=== PATIENT | male | born 1995 | race Caucasian/White ===

== ENCOUNTER 2021-02-25 11:08 | Emergency (ER) | payer OTHER ==
[~2021-02-25] VITALS: Ht 170.2 cm; Wt 83.2 kg
[~2021-02-25 11:08] MED LIST: HYDR-3165 PO
[2021-02-25 11:23] VITALS: BP 154/80
[2021-02-25] MEDS ORDERED: LIDOCAINE 2% 20 ML VIAL. ONE (11:41)
[2021-02-25] MEDS ORDERED: LIDOCAINE 2% 20 ML VIAL. IJ ONE (11:45)
[2021-02-25] MEDS ORDERED: BACITRACIN ZINC TOPICAL OINT PACKET. TP ONE ×3 (12:21→12:45)
[2021-02-25] MEDS ORDERED: CEPHALEXIN 250 MG CAPSULE ONE (12:34)
[2021-02-25] MEDS ORDERED: CEPH500T PO (12:35)
--- NOTE | 2021-02-25 12:35 | PHYS DOC ---
Past History Past Medical History: Anxiety, Depression Past Surgical History: Other Alcohol Use: Occasionally Drug Use: None Adult General Chief Complaint Chief Complaint: LACERATION/AVULSION HPI HPI Patient is a 25-year-old male presenting for laceration. He is healthy, active duty and was at work when he was trying to open a box with a pocket knife, he subsequently accidentally cut his right pinky. Bleeding controlled prior to arrival with direct pressure. He has no medical issues, no medications on a daily basis, no blood thinners, tetanus is up-to-date. Denies any changes in motor, sensory or neurologic function Review of Systems Review of Systems Fourteen body systems of review of systems have been reviewed. See HPI for pertinent positives and negative responses, other reyes all other systems are negative, non-pertinent or non-contributory Current Medications Current Medications Current Medications Medications (Trade) Dose Ordered Sig/Andreea Start Time Stop Time Status Last Admin Dose Admin Bacitracin (Bacitracin Topical Pkt) 1 pkt STK-MED ONCE 02/25/21 12:21 02/25/21 12:22 DC Lidocaine HCl 20 ml STK-MED ONCE 02/25/21 11:41 02/25/21 11:41 DC Allergies Allergies Allergies Coded Allergies Type Severity Reaction Last Updated Verified No Known Drug Allergies 09/23/16 No Physical Exam Physical Exam Constitutional: Well developed, well nourished, no acute distress, non-toxic appearance. HENT: Normocephalic, atraumatic, bilateral external ears normal, oropharynx moist, no oral exudates, nose normal. Eyes: PERRLA, EOMI, conjunctiva normal, no discharge. Neck: Normal range of motion, no tenderness, supple, no stridor. Cardiovascular: Heart rate regular per monitor Lungs & Thorax: No respiratory distress or accessory muscle use, bilateral chest rise Abdomen: Abdomen soft, non-tender, bowel sounds present in all quadrants, no guarding or rebound, nonacute abdomen. Skin: Warm, dry, no erythema, no rash. Laceration present to lateral portion of right pinky near base not overlying any ligaments, no foreign bodies present Back: No tenderness, no CVA tenderness. Extremities: Appropriate tenderness over site of laceration without any other concerning findings, no cyanosis, no clubbing, ROM intact, no edema. Neurologic: Alert and oriented X 3, medial radial and ulnar nerves of right upper extremity intact, normal motor & sensory function, no focal deficits noted. Psychologic: Affect normal, judgement normal, mood normal. Current Patient Data Vital Signs Vital Signs Date Time Temp Pulse Resp B/P (MAP) Pulse Ox O2 Delivery O2 Flow Rate FiO2 02/25/21 11:23 98.2 76 16 154/80 (104) 98 Room Air EKG EKG [] Radiology/Procedures Radiology/Procedures [] Heart Score C/O Chest Pain: No Risk Factors: Risk Factors: DM, Current or recent (<one month) smoker, HTN, HLP, family history of CAD, obesity. Risk Scores: Risk Factors: DM, Current or recent (<one month) smoker, HTN, HLP, family history of CAD, obesity. Course & Med Decision Making Course & Med Decision Making Patient had a laceration that was repaired in the ED after copious irrigation. After exploration of the wound, there was no evidence of a retained foreign body. No evidence of underlying fracture. TDAP: UTD Interventions: Joint decision made to administer antibiotics at this time given location, event time, and patient despite absence of surrounding signs of infection. There is concern due to cleanliness of knife Disposition: Discharge. Patient has been given strict wound return precautions and instructions to follow up with their PCP for a wound recheck and removal. Dragon Disclaimer Dragon Disclaimer This electronic medical record was generated, in whole or in part, using a voice recognition dictation system. Laceration Repair Lac Repair Indication: Laceration Procedure: The patient was placed in the appropriate position and anesthesia around the base of the pinky was applied. Area was irrigated with copious amounts of tap water and cleansed with alcohol pads. A total of 2 cc 1% lidocaine without epinephrine was used for anesthesia. Area was evaluated thoroughly without any obvious underlying musculature/tendon/ligament/vascular interruption, no foreign body. The laceration was sutured closed with a total of x3 simple interrupted nonabsorbable six-point 0 sutures. The wound area was then dressed with nonadhesive dressing. Total repaired wound length: 1.5 cm. The patient tolerated the procedure well without any observed nor reported complications. Departure Departure: Impression: Primary Impression: Laceration of hand Disposition: HOME / SELF CARE / HOMELESS Condition: STABLE Referrals: KYRA ANDREW (PCP) Patient Instructions: Laceration Care, Adult Additional Instructions: You were seen for a laceration. Keep the area clean and dry. You should return to the ED or your PCP office to get your sutures removed in 7-10 days. Return to the ED immediately if you develop any signs of infection like increased pain, redness, fever, or purulent (pus) drainage. Do not take baths, submerge the wound, or use a hot tub until your stitches are removed and the wound is healed. Scripts Cephalexin (CEPHALEXIN) 500 Mg Tablet 2 TAB PO BID for skin infection for 7 Days, #28 TAB Prov: SANIA LAWRENCE DO 02/25/21 SANIA LAWRENCE DO Feb 25, 2021 12:35
[2021-02-25] MEDS ORDERED: CEPHALEXIN 250 MG CAPSULE PO ONE (12:45)
== END 2021-02-25 12:40 | disposition home or self-care (01) ==
LOC: ER 11:08
DX: S61.216A Laceration without foreign body of right little finger without damage to nail, initial encounter (principal); X58.XXXA Exposure to other specified factors, initial encounter; Y93.89 Activity, other specified; Y92.89 Other specified places as the place of occurrence of the external cause; Y99.8 Other external cause status
CPT/HCPCS: 12001; 99283